=== PATIENT | male | born 1970 | race Caucasian/White ===

== ENCOUNTER → 2021-02-28 | Outpatient (CLI) | payer OTHER | LOC: CARD 13:00 | PROVIDERS: ATTEND Internal Medicine Cardiovascular Disease | DX: I20.9 Angina pectoris, unspecified (principal); I51.7 Cardiomegaly | CPT/HCPCS: 93306 ==

== ENCOUNTER → 2021-03-17 | Outpatient (CLI) | payer OTHER ==
[~2021-03-17] VITALS: Ht 175 cm; Wt 118.0 kg
[~2021-03-17] MED LIST: CATHETER FLUSH 10 ML SYR IV PRN; REGADENOSON 0.4 MG/5 ML SYR (LEXISCAN) IV ONE
[2021-03-17 08:56] VITALS: BP 173/85
--- NOTE | 2021-03-17 11:14 | NUCLEAR STRESS TEST ---
REGADENOSON NUCLEAR STRESS Date of procedure: 03/17/2021. Primary care provider: Eli Coleman MD Admitting physician: Fernandez Carrasco Jr., MD. INDICATION: Coronary artery disease with angina pectoris. BASELINE ELECTROCARDIOGRAM: Sinus rhythm with nonspecific intraventricular conduction delay and possible old septal myocardial infarction. STRESS TEST PROCEDURE: The patient was administered 0.4 mg of intravenous Regadenoson. The resting heart rate was 82 bpm and the peak heart rate was 110 bpm. The resting blood pressure was 173/85 mmHg and the minimum blood pressure was 151/76 mmHg. This represents a normal heart rate and a normal blood pressure response to Regadenoson. The test was stopped due to the protocol. There was no chest discomfort during the test. There were no arrhythmias during the test. There were no significant stress induced electrocardiogram changes. NUCLEAR PROCEDURE: The patient was administered 10.7 mCi of intravenous technetium 99m Tetrofosmin at rest for the rest images. The patient was subsequently administered 29.6 mCi of intravenous technetium 99m Tetrofosmin at peak stress for the stress images. Following an appropriate wait after each injection, imaging was obtained. The images were subsequently processed and reformatted in the usual views. Gated imaging was obtained. The image quality was adequate. NUCLEAR RESULTS: There was moderate sized, moderate intensity, partially reversible inferior, lateral and apical defect with a small amount of inducible ischemia in the distal lateral wall and apex. There was normal left ventricular chamber size with an end-diastolic volume of 108 mL and an end-systolic volume of 54 mL. There was no evidence of transient ischemic dilatation. The TID ratio was 1.05. There was inferior and lateral hypokinesis with a calculated ejection fraction of 50%. IMPRESSION: 1. Normal heart rate and blood pressure response to regadenoson. 2. There was no chest discomfort, arrhythmias, or electrocardiogram changes during the test. 3. There was moderate sized, moderate intensity, partially reversible inferior, lateral and apical defect with a small amount of inducible ischemia in the distal lateral wall and apex. 4. There was inferior and lateral hypokinesis with a calculated ejection fraction of 50%. 5. This is an abnormal result but representing an overall low risk for future cardiac events. FERNANDEZ CARRASCO JR, MD Mar 17, 2021 11:14
== END ==
LOC: CARD 07:43
PROVIDERS: ATTEND Internal Medicine Cardiovascular Disease
DX: I25.119 Atherosclerotic heart disease of native coronary artery with unspecified angina pectoris (principal)
CPT/HCPCS: 78452; 93017; A9502